=== PATIENT | female | born 1970 | race Caucasian/White ===

== ENCOUNTER → 2023-12-18 | Outpatient (BNVA) | payer OTHER, SELFPAY | END | disposition home or self-care (01) | PROVIDERS: PCP Family Medicine; Referring Provider Family Medicine; Visit Provider Urology | DX: R31.29 Other microscopic hematuria (principal); C50.911 Malignant neoplasm of unspecified site of right female breast; Z80.9 Family history of malignant neoplasm, unspecified; Z87.440 Personal history of urinary (tract) infections; I10 Essential (primary) hypertension; J45.20 Mild intermittent asthma, uncomplicated; L40.9 Psoriasis, unspecified; Z98.84 Bariatric surgery status | CPT/HCPCS: 81003; 99212; G0463 ==

== ENCOUNTER → 2024-02-17 | Outpatient (BNVA) | payer OTHER, SELFPAY | END | disposition home or self-care (01) | PROVIDERS: PCP Family Medicine; Referring Provider Family Medicine; Visit Provider Urology | DX: N35.92 Unspecified urethral stricture, female (principal); D41.4 Neoplasm of uncertain behavior of bladder; N36.2 Urethral caruncle; Z85.3 Personal history of malignant neoplasm of breast | CPT/HCPCS: 52214; 81003; 96372; A4217; A4649; C1894; J1580; A9270 ==

== ENCOUNTER → 2024-03-05 | Outpatient (CLI) | payer OTHER, SELFPAY ==
[2024-03-05 16:29] LABS: Amphetamine/Methamp Scrn,U Negative (Negative); Barbiturate Screen,Urine Negative (Negative); Benzodiazepines Screen,Urine Negative (Negative); Benzoylecgonine Screen, Ur Negative (Negative); Fentanyl Screen,Urine Negative (Negative); Opiate Screen,Urine Negative (Negative); THC Screen,Urine Positive (Negative)
== END | disposition home or self-care (01) ==
LOC: SLDO 14:31
PROVIDERS: PCP Nurse Practitioner Family; Referring Provider Nurse Practitioner Family; Visit Provider Nurse Practitioner Family
DX: G89.4 Chronic pain syndrome (principal); Z79.891 Long term (current) use of opiate analgesic
CPT/HCPCS: 80307

== ENCOUNTER → 2024-04-09 | Outpatient (CLI) | payer BC, SELFPAY ==
[2024-04-09 16:59] LABS: Basophils % (Auto) 1 % (0-2.5); Eosinophils # (Auto) 0.3 Thou/mm3 (0.0-0.5); Eosinophils % (Auto) 5 % (0-10); Hemoglobin 10.5 g/dL (12.0-16.0); Immature Granulocytes % (Auto) 0 % (0-0); Immature Granulocytes Auto 0.01 Thou/mm3 (0.00-0.00); Lymphocytes # (Auto) 2.1 Thou/mm3 (1.0-4.8); Lymphocytes % (Auto) 37 % (10-50); Mean Corpuscular HGB Conc 32.8 g/dl (31.0-37.0); Mean Corpuscular Hemoglobin 26.5 pg (25.0-35.0); Mean Corpuscular Volume 81 fL (80-100); Monocytes # (Auto) 0.8 Thou/mm3 (0.0-0.8); Monocytes % (Auto) 14 % (0-12); Neutrophils # (Auto) 2.4 Thou/mm3 (1.8-7.7); Neutrophils % (Auto) 42 % (37-80); Nucleated Red Blood Cell % 0 /100 WBC (0); Platelet Count 341 Thou/mm3 (140-440); RDW Standard Deviation 40.9 fL (36.4-46.3); Red Blood Count 3.96 Miln/mm3 (4.00-5.20); White Blood Count 5.7 Thou/mm3 (3.6-11.0)
[2024-04-09 17:08] LABS: Alanine Aminotransferase 11 U/L (10-49); Albumin, Serum 4.4 gm/dL (3.5-5.0); Albumin/Globulin Ratio 1.9 (1.2-2.2); Alkaline Phosphatase 69 U/L (46-116); Anion Gap 6 (7-16); Aspartate Amino Transferase 14 U/L (0-34); BUN/Creatinine Ratio 19 Ratio (12-20); Bilirubin,Total 0.2 mg/dL (0.3-1.2); Blood Urea Nitrogen 17 mg/dL (9-23); Calcium 9.6 mg/dL (8.3-10.6); Calcium (Corrected) 9.6 mg/dL (8.5-10.1); Carbon Dioxide 31.4 mMol/L (20.0-31.0); Chloride 104 mMol/L (98-107); Creatinine (Component) 0.9 mg/dL (0.6-1.3); Globulin 2.3 gm/dL (2.3-3.5); Glucose 70 mg/dL (74-106); Osmolality,Calculated 280 (275-295); Potassium 3.6 mMol/L (3.4-5.1); Sodium 141 mMol/L (136-145); Total Protein 6.7 gm/dL (5.7-8.2); eGFR > 60 See Note
== END | disposition home or self-care (01) ==
PROVIDERS: PCP Nurse Practitioner Family; Referring Provider Nurse Practitioner Family; Visit Provider Nurse Practitioner Family
DX: Z85.3 Personal history of malignant neoplasm of breast (principal)
CPT/HCPCS: 36415; 80053; 85025

== ENCOUNTER 2024-04-15 15:57 | Outpatient (RCR) | payer BC, SELFPAY | END 2024-05-10 23:59 | disposition home or self-care (01) | LOC: SCTC 15:57 | PROVIDERS: PCP Nurse Practitioner Family; Referring Provider Nurse Practitioner Family; Visit Provider Nurse Practitioner Family | DX: Z08 Encounter for follow-up examination after completed treatment for malignant neoplasm (principal); Z85.3 Personal history of malignant neoplasm of breast; Z86.2 Personal history of diseases of the blood and blood-forming organs and certain disorders involving the immune mechanism; M85.80 Other specified disorders of bone density and structure, unspecified site; Z98.84 Bariatric surgery status | CPT/HCPCS: 99212; G0463 ==

== ENCOUNTER → 2024-05-05 | Outpatient (CLI) | payer BC, SELFPAY ==
[2024-05-05 17:35] LABS: Basophils % (Auto) 1 % (0-2.5); Eosinophils # (Auto) 0.2 Thou/mm3 (0.0-0.5); Eosinophils % (Auto) 5 % (0-10); Hematocrit 32.5 % (36.0-46.0); Hemoglobin 10.5 g/dL (12.0-16.0); Immature Granulocytes % (Auto) 0 % (0-0); Immature Granulocytes Auto 0.01 Thou/mm3 (0.00-0.00); Immature Reticulocyte Fraction 14.8 % (3.0-15.9); Lymphocytes # (Auto) 1.9 Thou/mm3 (1.0-4.8); Lymphocytes % (Auto) 39 % (10-50); Mean Corpuscular HGB Conc 32.3 g/dl (31.0-37.0); Mean Corpuscular Hemoglobin 26.2 pg (25.0-35.0); Mean Corpuscular Volume 81 fL (80-100); Monocytes # (Auto) 0.6 Thou/mm3 (0.0-0.8); Monocytes % (Auto) 13 % (0-12); Neutrophils # (Auto) 2.1 Thou/mm3 (1.8-7.7); Neutrophils % (Auto) 43 % (37-80); Nucleated Red Blood Cell % 0 /100 WBC (0); Platelet Count 361 Thou/mm3 (140-440); RDW Standard Deviation 43.4 fL (36.4-46.3); Red Blood Count 4.01 Miln/mm3 (4.00-5.20); Reticulocyte % (Auto) 1.2 % (0.5-1.5); Reticulocyte Absolute Auto 46.5 Biln/L (25.0-75.0); Reticulocyte Hgb Content 28.6 pg (28.0-35.0); White Blood Count 4.9 Thou/mm3 (3.6-11.0)
[2024-05-05 17:50] LABS: Alanine Aminotransferase 11 U/L (10-49); Albumin, Serum 4.4 gm/dL (3.5-5.0); Albumin/Globulin Ratio 1.8 (1.2-2.2); Alkaline Phosphatase 74 U/L (46-116); Anion Gap 10 (7-16); Aspartate Amino Transferase 18 U/L (0-34); BUN/Creatinine Ratio 19 Ratio (12-20); Bilirubin,Total 0.3 mg/dL (0.3-1.2); Blood Urea Nitrogen 15 mg/dL (9-23); Calcium 9.4 mg/dL (8.3-10.6); Calcium (Corrected) 9.4 mg/dL (8.5-10.1); Carbon Dioxide 29.4 mMol/L (20.0-31.0); Chloride 100 mMol/L (98-107); Creatinine (Component) 0.8 mg/dL (0.6-1.3); Globulin 2.4 gm/dL (2.3-3.5); Glucose 73 mg/dL (74-106); Osmolality,Calculated 277 (275-295); Sodium 139 mMol/L (136-145); Total Protein 6.8 gm/dL (5.7-8.2); eGFR > 60 See Note
[2024-05-05 17:53] LABS: Folate 12.45 ng/mL (>5.38); Vitamin B12 262 pg/mL (211-911)
[2024-05-05 17:54] LABS: Ferritin 4 ng/mL (7.3-270.7); Iron 24 mcg/dL (50-170); Percent Iron Saturation 5 % (20-55); Total Iron Binding Capacity 413 mcg/dL (250-425); Unsaturated Iron Binding 389 (225-295)
== END | disposition home or self-care (01) ==
LOC: SCTO 15:56
PROVIDERS: PCP Nurse Practitioner Family; Referring Provider Nurse Practitioner Family; Visit Provider Nurse Practitioner Family
DX: Z85.3 Personal history of malignant neoplasm of breast (principal)
CPT/HCPCS: 36415; 80053; 82607; 82728; 82746; 83540; 83550; 85025; 85046

== ENCOUNTER 2024-05-12 15:20 | Outpatient (RCR) | payer BC, SELFPAY | END 2024-06-09 23:59 | disposition home or self-care (01) | LOC: SCTC 15:20 | PROVIDERS: PCP Nurse Practitioner Family; Referring Provider Nurse Practitioner Family; Visit Provider Nurse Practitioner Family | DX: Z08 Encounter for follow-up examination after completed treatment for malignant neoplasm (principal); Z90.13 Acquired absence of bilateral breasts and nipples; Z85.3 Personal history of malignant neoplasm of breast; M85.80 Other specified disorders of bone density and structure, unspecified site; E53.8 Deficiency of other specified B group vitamins; D50.9 Iron deficiency anemia, unspecified; Z98.84 Bariatric surgery status | CPT/HCPCS: 99212; G0463 ==

== ENCOUNTER 2024-05-17 12:09 | Emergency (ER) | payer BC, SELFPAY ==
[2024-05-17 12:11] VITALS: BMI 33.2
[2024-05-17 12:17] VITALS: BP 164/102; PULSE 66; RESP 16; TEMP 36.9; O2SAT 99
--- NOTE | 2024-05-17 12:23 | EKG_ITS ---
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
--- NOTE | 2024-05-17 12:24 | PD.EDRME ---
Rapid Medical Screening Exam RME Arrival date/time: 05/17/24 12:09 54-year-old female with a history of hypertension and iron deficiency anemia presents to the emergency room with a chief complaint of a hemoglobin level of 5. Patient states she was called by her primary care provider to come to the emergency room for a blood transfusion. Patient states she is also having sternal 6 out of 10 chest pain. I have greeted and performed a focused initial assessment of this patient. A comprehensive ED assessment and evaluation of the patient, analysis of all test results, and completion of the medical decision making process will be conducted by additional ED providers. Chief Complaint: Recheck/Abnormal Lab/Rx Vital signs: Vital Signs Temperature 98.4 F 05/17/24 12:17 Pulse Rate 66 05/17/24 12:17 Respiratory Rate 16 05/17/24 12:17 Blood Pressure 164/102 H 05/17/24 12:17 Pulse Oximetry (%) 99 05/17/24 12:17 Oxygen Delivery Method Room Air 05/17/24 12:17 Vital signs reviewed by provider: Yes
[2024-05-17 12:49] LABS: Basophils % (Auto) 1 % (0-2.5); Eosinophils # (Auto) 0.2 Thou/mm3 (0.0-0.5); Eosinophils % (Auto) 3 % (0-10); Hematocrit 33.8 % (36.0-46.0); Hemoglobin 10.9 g/dL (12.0-16.0); Immature Granulocytes % (Auto) 0 % (0-0); Lymphocytes # (Auto) 1.7 Thou/mm3 (1.0-4.8); Lymphocytes % (Auto) 32 % (10-50); Mean Corpuscular HGB Conc 32.2 g/dl (31.0-37.0); Mean Corpuscular Volume 81 fL (80-100); Monocytes # (Auto) 0.6 Thou/mm3 (0.0-0.8); Monocytes % (Auto) 10 % (0-12); Neutrophils # (Auto) 2.9 Thou/mm3 (1.8-7.7); Neutrophils % (Auto) 54 % (37-80); Nucleated Red Blood Cell % 0 /100 WBC (0); Platelet Count 383 Thou/mm3 (140-440); RDW Standard Deviation 42.5 fL (36.4-46.3); Red Blood Count 4.19 Miln/mm3 (4.00-5.20); White Blood Count 5.4 Thou/mm3 (3.6-11.0)
[2024-05-17 13:00] LABS: Prothrombin Time 10.5 Seconds (9.0-12.2)
[2024-05-17 13:01] LABS: B-Type Natriuretic Peptide 22 pg/mL (0-100)
[2024-05-17 13:04] LABS: Alanine Aminotransferase 11 U/L (10-49); Albumin, Serum 4.6 gm/dL (3.5-5.0); Albumin/Globulin Ratio 1.7 (1.2-2.2); Alkaline Phosphatase 77 U/L (46-116); Anion Gap 7 (7-16); Aspartate Amino Transferase 20 U/L (0-34); BUN/Creatinine Ratio 19 Ratio (12-20); Bilirubin,Total 0.3 mg/dL (0.3-1.2); Blood Urea Nitrogen 15 mg/dL (9-23); Calcium 9.8 mg/dL (8.3-10.6); Calcium (Corrected) 9.8 mg/dL (8.5-10.1); Chloride 103 mMol/L (98-107); Creatinine (Component) 0.8 mg/dL (0.6-1.3); Estimated Creatinine Clearance 72.1 mL/min (>60); Globulin 2.7 gm/dL (2.3-3.5); Glucose 96 mg/dL (74-106); Osmolality,Calculated 276 (275-295); Potassium 4.1 mMol/L (3.4-5.1); Sodium 138 mMol/L (136-145); Total Protein 7.3 gm/dL (5.7-8.2); Troponin I < 0.002 ng/mL (0.0-0.045); eGFR > 60 See Note
[2024-05-17 13:44] LABS: Collection Type, Urine Clean Catch
[2024-05-17 13:56] LABS: Bilirubin,Urine Negative (Negative); Blood,Urine Trace (Negative); Clarity,Urine Clear (Clear/Hazy); Color,Urine Colorless (Lt Yel-Yel); Glucose, Urine Negative (Negative); Ketones,Urine Negative (Negative); Leukocyte Esterase,Urine Negative (Negative); Nitrite,Urine Negative (Negative); PH,Urine 6.5 (5.0-7.0); Protein,Urine Negative (Neg - Trace); RBC,Urine < 1 /hpf (0-3); Specific Gravity,Urine 1.008 (1.001-1.035); Squamous Epithelial Cell,Urine < 1 /hpf (0-5); Urobilinogen,Urine Negative mg/dL (0.0-1.0); WBC,Urine < 1 /hpf (0-5)
--- NOTE | 2024-05-17 15:06 | PD.EDRECHK ---
ED Recheck Abnl Lab Rx-RME/HPI General Chief Complaint: Recheck/Abnormal Lab/Rx Stated Complaint: SENT BY PCP HGB 5 C/O CHEST PAIN & SOB Arrival date/time: 05/17/24 12:09 RME / HPI RME / HPI narrative: 05/17/24 12:09 54-year-old female with a history of hypertension and iron deficiency anemia presents to the emergency room with a chief complaint of a hemoglobin level of 5. Patient states she was called by her primary care provider to come to the emergency room for a blood transfusion. Patient states she is also having sternal 6 out of 10 chest pain. I have greeted and performed a focused initial assessment of this patient. A comprehensive ED assessment and evaluation of the patient, analysis of all test results, and completion of the medical decision making process will be conducted by additional ED providers. DR. RASCON MAIN ED EVALUATION: 54 year old female presents to the Emergency Department sent for a reported outpatient Hgb 5 at the cancer treatment [facility]. Patient states she has received iron infusions at the cancer treatment center. Occasional light-headedness. No CP, SOB. No other symptoms reported at this time. PMHx: Hypertension and iron deficiency anemia Social Hx: No tobacco, alcohol, or substance use. Related Data Home Medications ?Medication ?Instructions ?Recorded ?Confirmed tramadol 50 mg tablet (Ultram) 50 mg PO TID #0 tabs 12/12/15 02/17/24 cyanocobalamin (vitamin B-12) 100 mcg subcut QOWEEK 10/26/20 02/17/24 1,000 mcg/mL injection solution losartan 100 1 tab PO QDAY 05/28/21 02/17/24 mg-hydrochlorothiazide 25 mg tablet metoprolol tartrate 25 mg tablet 25 mg PO QDAY 08/27/21 02/17/24 Allergies Allergy/AdvReac Type Severity Reaction Status Date / Time aspirin Allergy Unknown CANT Verified 05/17/24 12:10 BREATHE Review of Systems Review of Systems Systems Reviewed: All systems reviewed, normal except as documented Past Medical History Past Medical History NEUROLOGIC: Negative Neurological Disorders or Seizures CARDIAC: Positive Cardiac Disorders and Hypertension; Negative Congestive Heart Failure RESPIRATORY: Negative Chronic Obstructive Pulmonary Disease (COPD) GASTROINTESTINAL: Positive Gastrointestinal Disorders (Hx of Gastric bypass) and Obesity GENITOURINARY: Negative Genitourinary Disorders or Renal Disease REPRODUCTIVE: Positive Breast Cancer (bilat mastectomy); Negative Pelvic Inflammatory Disease MUSCULOSKELETAL: Positive Musculoskeletal Disorders and Arthritis (neck,back,shoulders,hands) ENDOCRINE: Negative Endocrine Disorders, Diabetes Mellitus Type 1 or Diabetes Mellitus Type 2 HEMATOLOGIC: Negative Blood Disorders OTHER HISTORY: Positive Chicken Pox, Cancer (right breast cancer) and Breast Cancer (bilat mastectomy); Negative Autoimmune Disease Family History FAMILY HISTORY: Positive Family Cardiac Disorders (father) and Family Cancer (maternal grandmother colon ca); Negative Family Anesthesia Reaction Surgical History SURGICAL: Positive Gastric Bypass Surgery, Mastectomy (Bilat-lymph nodes from rt side only) and Hysterectomy Social History SMOKING STATUS: Never smoker SUBSTANCE USE: does not use ALCOHOL: Never ED Exam Narrative Physical exam: GENERAL APPEARANCE: alert and oriented x 4, well-developed, well-nourished, no acute distress VITALS: All vitals were reviewed and the pulse ox is 97% on room air, which is normal according to my interpretation. HEENT: Normocephalic, atraumatic; pupils equal, round, reactive to light; EOMI; mucous membranes pink, moist; oropharynx clear NECK: Supple LUNGS: CTABL; no wheezes, no rales, no rhonchi HEART: Regular rate, regular rhythm; normal S1, S2; no murmurs ABDOMEN: non distended; normal BS; soft, no tenderness, no guarding, no rebound; no masses, no organomegaly, no hernia BACK: no CVA tenderness EXTREMITIES: atraumatic; no edema NEUROLOGIC: awake; alert and oriented x4; cranial nerves II-XII grossly intact; no focal sensory or motor deficits PSYCHIATRIC: appropriate mood and affect SKIN: warm, dry, normal color; no rashes Course Quality Measures none Orders Category Date Time Status EKG (ED ONLY) *Do not use* NOW Care 05/17/24 12:23 Completed EKG (ED Only) Stat Exams 05/17/24 12:23 Draft B-Type Natriuretic Peptide Stat Lab 05/17/24 12:38 Completed CBC Stat Lab 05/17/24 12:38 Completed CMP [Comprehensive Metabolic Panel] Stat Lab 05/17/24 12:38 Completed Magnesium Stat Lab 05/17/24 12:38 Completed PT [Prothrombin Time with INR] Stat Lab 05/17/24 12:38 Completed PTT [Partial Thromboplastin Time] Stat Lab 05/17/24 12:38 Completed Troponin I Stat Lab 05/17/24 12:38 Completed Type and Screen Stat Lab 05/17/24 12:38 Completed Urinalysis Stat Lab 05/17/24 13:38 Completed Vital Signs Vital signs: Vital Signs Temperature 98.4 F 05/17/24 12:17 Pulse Rate 66 05/17/24 12:17 Respiratory Rate 16 05/17/24 12:17 Blood Pressure 164/102 H 05/17/24 12:17 Pulse Oximetry (%) 99 05/17/24 12:17 Oxygen Delivery Method Room Air 05/17/24 12:17 Recheck / Abnormal Lab / Rx MDM Narrative MDM Narrative:: Ninfa Stark am scribing for and in the presence of Dr. Rascon. Patient data External records reviewed:: [facility] previous records (Reviewed last urology note by Dr. Vazquez, dated 02/17/24.) Clinical information provided by:: patient Social determinants that could affect healthcare access:: none Patient has the following chronic illnesses:: Hypertension and iron deficiency anemia How is presenting disease/condition affected by chronic disease/condition?: exacerbated by Evaluation data The following diagnostics were reviewed and interpreted by me:: lab results and EKG tracing(s) Lab and/or radiology exams considered but not ordered:: none Interpretation Summary: EKG#1: EKG at 1231 hours. Interpreted by me: sinus rhythm, rate 68, no acute ischemic changes Medications / Prescriptions Medications or Prescriptions considered but not ordered:: none Medication administrations:: see above if any Consultations Consultation(s) initiated? (list below): No Diagnosis Recheck Differential Diagnosis: other (Anemia, iron deficiency anemia, dehydration) Most likely diagnosis given after review of the tests above:: Anemia Admission Indicated Admission indicated?: not indicated Admission Request Was there a request for admission?: No Disposition Plan Disposition Plan: Discharge Discharge Attestation Discharge Attestation: The patient and all family members were given an opportunity to ask questions and understood the discharge instructions. Discharge instructions specifically effects, indications for sooner follow up or return to the emergency department, and the expected course of current diagnosis. Patient condition: Stable Discharge Plan Plan Patient Disposition: HOME (Self Care) Prescriptions/Referrals Prescriptions/Med Rec: No Action losartan-hydrochlorothiazide 100-25 mg tablet 1 tab PO QDAY metoprolol tartrate 25 mg tablet 25 mg PO QDAY tramadol [Ultram] 50 MG tablet 50 mg PO TID Qty: 0 Patient Comments: FOR PAIN, NOT TO EXCEED 8 TABS IN 24 HRS cyanocobalamin (vitamin B-12) 1,000 mcg/mL solution 100 mcg SUBCUT QOWEEK Patient Comments: INJECT 1ML INTRAMUSCULALRY WEEKLY FOR 4 WEEKS THEN 1ML EVERY MONTH Referrals: Verena Manuel, LATHE TURNER [Primary Care Provider] - In 1 week Problem List Clinical Impression: Anemia Patient/Caregiver Discharge Instructions Education Materials: ED Anemia Type Not Specified Additional Instructions: 05/17/24 1238: Hgb 10.9 Print Language: Romansh Stand Alone Forms: Gracie Award Info., Patient Portal Info Letter
[2024-05-17 15:09] VITALS: BP 157/93; PULSE 61; RESP 16; TEMP 36.9; O2SAT 97
== END 2024-05-17 15:15 | disposition home or self-care (01) ==
PROVIDERS: Nurse Practitioner Family; Emergency Provider Emergency Medicine; PCP Nurse Practitioner Family
DX: D64.9 Anemia, unspecified (principal); I10 Essential (primary) hypertension; R07.9 Chest pain, unspecified
CPT/HCPCS: 36415; 80053; 81001; 83735; 83880; 84484; 85025; 85610; 85730; 86850; 86900; 86901; 93005; 99283

== ENCOUNTER 2024-06-28 13:52 | Outpatient (RCR) | payer BC, SELFPAY | END 2024-07-10 23:59 | disposition home or self-care (01) | LOC: SCTC 13:52 | PROVIDERS: PCP Nurse Practitioner Family; Referring Provider Nurse Practitioner Family; Visit Provider Nurse Practitioner Family | DX: E53.8 Deficiency of other specified B group vitamins (principal); D50.9 Iron deficiency anemia, unspecified; Z85.3 Personal history of malignant neoplasm of breast; M85.80 Other specified disorders of bone density and structure, unspecified site; Z79.83 Long term (current) use of bisphosphonates; Z98.84 Bariatric surgery status | CPT/HCPCS: 96365; 96372; 96375; J1756; J2919; J3420; J3490; J7040; J7050; A9270 ==

== ENCOUNTER 2024-08-09 13:16 | Outpatient (RCR) | payer BC, SELFPAY | END 2024-08-09 23:59 | disposition home or self-care (01) | LOC: SCTC 13:16 | PROVIDERS: PCP Nurse Practitioner Family; Referring Provider Nurse Practitioner Family; Visit Provider Nurse Practitioner Family | DX: D50.9 Iron deficiency anemia, unspecified (principal); E53.8 Deficiency of other specified B group vitamins; M85.80 Other specified disorders of bone density and structure, unspecified site; Z85.3 Personal history of malignant neoplasm of breast; Z98.84 Bariatric surgery status; Z90.13 Acquired absence of bilateral breasts and nipples | CPT/HCPCS: 36415; 96365; 96367; 96372; 96375; A4216; J1756; J2919; J3420; J3489; J3490; J7040; J7050 ==

== ENCOUNTER → 2024-09-03 | Outpatient (BNVA) | payer BC, SELFPAY | END | disposition home or self-care (01) | PROVIDERS: PCP Family Medicine; Referring Provider Family Medicine; Visit Provider Urology | DX: R31.29 Other microscopic hematuria (principal); Z85.3 Personal history of malignant neoplasm of breast; Z80.9 Family history of malignant neoplasm, unspecified; I10 Essential (primary) hypertension; J45.20 Mild intermittent asthma, uncomplicated; Z98.84 Bariatric surgery status; E66.9 Obesity, unspecified; Z68.32 Body mass index [BMI] 32.0-32.9, adult | CPT/HCPCS: 81003; 99212; G0463 ==

== ENCOUNTER → 2024-09-06 | Outpatient (CLI) | payer BC, SELFPAY ==
[2024-09-06 14:32] LABS: Basophils # (Auto) 0.0 Thou/mm3 (0.0-0.2); Basophils % (Auto) 1 % (0-2.5); Eosinophils # (Auto) 0.2 Thou/mm3 (0.0-0.5); Eosinophils % (Auto) 4 % (0-10); Hematocrit 42.1 % (36.0-46.0); Hemoglobin 14.0 g/dL (12.0-16.0); Immature Granulocytes Auto 0.04 Thou/mm3 (0.00-0.00); Immature Reticulocyte Fraction 6.0 % (3.0-15.9); Lymphocytes # (Auto) 1.4 Thou/mm3 (1.0-4.8); Lymphocytes % (Auto) 26 % (10-50); Mean Corpuscular HGB Conc 33.3 g/dl (31.0-37.0); Mean Corpuscular Hemoglobin 29.5 pg (25.0-35.0); Mean Corpuscular Volume 89 fL (80-100); Monocytes # (Auto) 0.5 Thou/mm3 (0.0-0.8); Monocytes % (Auto) 10 % (0-12); Neutrophils # (Auto) 3.1 Thou/mm3 (1.8-7.7); Neutrophils % (Auto) 58 % (37-80); Nucleated Red Blood Cell # 0.00 Thou/mm3 (0.00-0.00); Nucleated Red Blood Cell % 0 /100 WBC (0); Platelet Count 295 Thou/mm3 (140-440); RDW Standard Deviation 56.3 fL (36.4-46.3); Red Blood Count 4.75 Miln/mm3 (4.00-5.20); Reticulocyte % (Auto) 1.6 % (0.5-1.5); Reticulocyte Absolute Auto 77.4 Biln/L (25.0-75.0); Reticulocyte Hgb Content 37.0 pg (28.0-35.0); White Blood Count 5.3 Thou/mm3 (3.6-11.0)
[2024-09-06 14:57] LABS: Ferritin 266 ng/mL (7.3-270.7); Iron 144 mcg/dL (50-170); Percent Iron Saturation 47 % (20-55); Total Iron Binding Capacity 301 mcg/dL (250-425); Unsaturated Iron Binding 157 (225-295)
[2024-09-06 14:58] LABS: Alanine Aminotransferase 14 U/L (10-49); Albumin, Serum 4.6 gm/dL (3.5-5.0); Albumin/Globulin Ratio 2.0 (1.2-2.2); Alkaline Phosphatase 61 U/L (46-116); Anion Gap 9 (7-16); Aspartate Amino Transferase 20 U/L (0-34); BUN/Creatinine Ratio 16 Ratio (12-20); Bilirubin,Total 0.3 mg/dL (0.3-1.2); Blood Urea Nitrogen 14 mg/dL (9-23); Calcium 9.4 mg/dL (8.3-10.6); Calcium (Corrected) 9.4 mg/dL (8.5-10.1); Carbon Dioxide 29.7 mMol/L (20.0-31.0); Cardiac Risk Estimate 2.2 RATIO (3.7-5.6); Chloride 103 mMol/L (98-107); Cholesterol 250 mg/dL (132-200); Creatinine (Component) 0.9 mg/dL (0.6-1.3); Folate 12.02 ng/mL (>5.38); Globulin 2.3 gm/dL (2.3-3.5); Glucose 94 mg/dL (74-106); HDL Cholesterol 113 mg/dL (40-60); LDL Cholesterol,Calculated 88 mg/dL (0-130); Osmolality,Calculated 283 (275-295); Potassium 4.2 mMol/L (3.4-5.1); Sodium 142 mMol/L (136-145); Thyroid Stimulating Hormone 2.11 uIU/mL (0.55-4.78); Total Protein 6.9 gm/dL (5.7-8.2); Triglycerides 247 mg/dL (30-150); Vitamin B12 576 pg/mL (211-911); Vitamin D 25 Hydroxy Total 20.7 ng/mL (7.3-40.2); eGFR > 60 See Note
[2024-09-06 15:07] LABS: Glucose Estimated Average 117 mg/dL (80-131); Hemoglobin A1C 5.7 % Hgb (4.8-6.0)
[2024-09-06 15:23] LABS: Collection Type, Urine Clean Catch; Squamous Epithelial Cell,Urine 0 /hpf (0-5)
[2024-09-06 15:48] LABS: Bilirubin,Urine Negative (Negative); Blood,Urine 2+ (Negative); Clarity,Urine Clear (Clear/Hazy); Color,Urine Lt-Yellow (Lt Yel-Yel); Culture Indicated,Urine Not Indicated; Glucose, Urine Negative (Negative); Ketones,Urine Negative (Negative); Leukocyte Esterase,Urine Negative (Negative); Nitrite,Urine Negative (Negative); PH,Urine 7.0 (5.0-7.0); Protein,Urine Negative (Neg - Trace); RBC,Urine 35 /hpf (0-3); Specific Gravity,Urine 1.020 (1.001-1.035); Urobilinogen,Urine Negative mg/dL (0.0-1.0); WBC,Urine 1 /hpf (0-5)
== END | disposition home or self-care (01) ==
LOC: SCTO 14:00
PROVIDERS: PCP Nurse Practitioner Family; Referring Provider Nurse Practitioner Family; Visit Provider Nurse Practitioner Family
DX: Z85.3 Personal history of malignant neoplasm of breast (principal); M85.80 Other specified disorders of bone density and structure, unspecified site; Z00.00 Encounter for general adult medical examination without abnormal findings; Z98.84 Bariatric surgery status
CPT/HCPCS: 36415; 80053; 80061; 81001; 82306; 82607; 82728; 82746; 83036; 83540; 83550; 84443; 85025; 85046

== ENCOUNTER 2024-09-09 09:25 | Outpatient (RCR) | payer BC, SELFPAY | END 2024-09-09 23:59 | disposition home or self-care (01) | LOC: SCTC 09:25 | PROVIDERS: PCP Nurse Practitioner Family; Referring Provider Nurse Practitioner Family; Visit Provider Nurse Practitioner Family | DX: D50.9 Iron deficiency anemia, unspecified (principal); E53.8 Deficiency of other specified B group vitamins; M85.80 Other specified disorders of bone density and structure, unspecified site; Z85.3 Personal history of malignant neoplasm of breast; Z90.13 Acquired absence of bilateral breasts and nipples | CPT/HCPCS: 96365; 96372; 96375; 99212; J1756; J2919; J3420; J3490; J7040; J7050; G0463 ==

== ENCOUNTER 2024-10-13 15:31 | Outpatient (RCR) | payer BC, SELFPAY | END 2024-11-09 23:59 | disposition home or self-care (01) | LOC: SCTC 15:31 | PROVIDERS: PCP Nurse Practitioner Family; Referring Provider Nurse Practitioner Family; Visit Provider Nurse Practitioner Family | DX: E53.8 Deficiency of other specified B group vitamins (principal); D50.9 Iron deficiency anemia, unspecified; Z85.3 Personal history of malignant neoplasm of breast; M85.80 Other specified disorders of bone density and structure, unspecified site | CPT/HCPCS: 96372; J3420 ==

== ENCOUNTER 2024-11-10 15:20 | Outpatient (RCR) | payer BC, SELFPAY | END 2024-12-10 23:59 | disposition home or self-care (01) | LOC: SCTC 15:20 | PROVIDERS: PCP Nurse Practitioner Family; Referring Provider Nurse Practitioner Family; Visit Provider Nurse Practitioner Family | DX: E53.8 Deficiency of other specified B group vitamins (principal); D50.9 Iron deficiency anemia, unspecified; Z85.3 Personal history of malignant neoplasm of breast | CPT/HCPCS: 96372; J3420 ==

== ENCOUNTER → 2024-12-01 | Outpatient (CLI) | payer BC, SELFPAY ==
[2024-12-01 17:44] LABS: Basophils # (Auto) 0.0 Thou/mm3 (0.0-0.2); Basophils % (Auto) 0 % (0-2.5); Eosinophils # (Auto) 0.1 Thou/mm3 (0.0-0.5); Eosinophils % (Auto) 3 % (0-10); Hematocrit 37.2 % (36.0-46.0); Hemoglobin 12.7 g/dL (12.0-16.0); Immature Granulocytes Auto 0.01 Thou/mm3 (0.00-0.00); Immature Reticulocyte Fraction 5.8 % (3.0-15.9); Lymphocytes # (Auto) 1.6 Thou/mm3 (1.0-4.8); Lymphocytes % (Auto) 32 % (10-50); Mean Corpuscular HGB Conc 34.1 g/dl (31.0-37.0); Mean Corpuscular Hemoglobin 31.2 pg (25.0-35.0); Mean Corpuscular Volume 91 fL (80-100); Monocytes # (Auto) 0.6 Thou/mm3 (0.0-0.8); Monocytes % (Auto) 12 % (0-12); Neutrophils # (Auto) 2.6 Thou/mm3 (1.8-7.7); Neutrophils % (Auto) 52 % (37-80); Nucleated Red Blood Cell # 0.00 Thou/mm3 (0.00-0.00); Nucleated Red Blood Cell % 0 /100 WBC (0); Platelet Count 277 Thou/mm3 (140-440); RDW Standard Deviation 41.1 fL (36.4-46.3); Red Blood Count 4.07 Miln/mm3 (4.00-5.20); Reticulocyte % (Auto) 1.3 % (0.5-1.5); Reticulocyte Absolute Auto 51.7 Biln/L (25.0-75.0); Reticulocyte Hgb Content 37.6 pg (28.0-35.0); White Blood Count 5.0 Thou/mm3 (3.6-11.0)
[2024-12-01 18:08] LABS: Alanine Aminotransferase 13 U/L (10-49); Albumin, Serum 4.7 gm/dL (3.5-5.0); Albumin/Globulin Ratio 2.5 (1.2-2.2); Alkaline Phosphatase 45 U/L (46-116); Anion Gap 10 (7-16); Aspartate Amino Transferase 20 U/L (0-34); BUN/Creatinine Ratio 20 Ratio (12-20); Bilirubin,Total 0.4 mg/dL (0.3-1.2); Blood Urea Nitrogen 16 mg/dL (9-23); Calcium 9.7 mg/dL (8.3-10.6); Calcium (Corrected) 9.7 mg/dL (8.5-10.1); Carbon Dioxide 27.9 mMol/L (20.0-31.0); Chloride 102 mMol/L (98-107); Creatinine (Component) 0.8 mg/dL (0.6-1.3); Folate 13.22 ng/mL (>5.38); Globulin 1.9 gm/dL (2.3-3.5); Glucose 89 mg/dL (74-106); LDH (Lactate Dehydrogenase) 191 U/L (120-246); Osmolality,Calculated 279 (275-295); Potassium 3.7 mMol/L (3.4-5.1); Sodium 140 mMol/L (136-145); Total Protein 6.6 gm/dL (5.7-8.2); eGFR > 60 See Note
[2024-12-01 18:09] LABS: Ferritin 197 ng/mL (7.3-270.7); Iron 116 mcg/dL (50-170); Percent Iron Saturation 38 % (20-55); Total Iron Binding Capacity 304 mcg/dL (250-425); Unsaturated Iron Binding 188 (225-295)
[2024-12-09 06:34] LABS: Haptoglobin* 63 mg/dL (43-212)
== END | disposition home or self-care (01) ==
LOC: SCTO 16:07
PROVIDERS: PCP Nurse Practitioner Family; Referring Provider Nurse Practitioner Family; Visit Provider Nurse Practitioner Family
DX: M85.80 Other specified disorders of bone density and structure, unspecified site (principal); Z85.3 Personal history of malignant neoplasm of breast
CPT/HCPCS: 36415; 80053; 82728; 82746; 83010; 83540; 83550; 83615; 85025; 85046

== ENCOUNTER 2024-12-23 15:46 | Outpatient (RCR) | payer BC, SELFPAY | END 2025-01-09 23:59 | disposition home or self-care (01) | LOC: SCTC 15:46 | PROVIDERS: PCP Nurse Practitioner Family; Referring Provider Nurse Practitioner Family; Visit Provider Nurse Practitioner Family | DX: E53.8 Deficiency of other specified B group vitamins (principal); Z85.3 Personal history of malignant neoplasm of breast; Z98.84 Bariatric surgery status; Z90.13 Acquired absence of bilateral breasts and nipples; D50.9 Iron deficiency anemia, unspecified; M85.80 Other specified disorders of bone density and structure, unspecified site | CPT/HCPCS: 96372; 99212; J3420; G0463 ==

== ENCOUNTER 2025-01-12 15:29 | Outpatient (RCR) | payer BC, SELFPAY | END 2025-02-09 23:59 | disposition home or self-care (01) | LOC: SCTC 15:29 | PROVIDERS: PCP Nurse Practitioner Family; Referring Provider Nurse Practitioner Family; Visit Provider Nurse Practitioner Family | DX: E53.8 Deficiency of other specified B group vitamins (principal); D50.9 Iron deficiency anemia, unspecified; M85.80 Other specified disorders of bone density and structure, unspecified site; Z85.3 Personal history of malignant neoplasm of breast | CPT/HCPCS: 96372; J3420 ==